=== PATIENT | female | born 1985 | race Caucasian/White ===

== ENCOUNTER 2017-06-27 11:21 | Emergency (ER) | payer MEDICAID, SELFPAY ==
[~2017-06-27] VITALS: Ht 162.6 cm; Wt 84.0 kg
[2017-06-27 11:31] VITALS: BP 130/78
== END 2017-06-27 12:41 | disposition home or self-care (01) ==
LOC: ED 12:00
DX: S93.602A Unspecified sprain of left foot, initial encounter (principal); M77.9 Enthesopathy, unspecified; F17.200 Nicotine dependence, unspecified, uncomplicated; X50.1XXA Overexertion from prolonged static or awkward postures, initial encounter; Y93.89 Activity, other specified; Y92.008 Other place in unspecified non-institutional (private) residence as the place of occurrence of the external cause; Y99.8 Other external cause status
CPT/HCPCS: 99284